=== PATIENT | male | born 1950 | race Caucasian/White ===

== ENCOUNTER 2022-12-18 17:21 | Emergency (ER) | payer OTHER ==
[~2022-12-18] VITALS: Ht 172.7 cm; Wt 79.8 kg
--- NOTE | 2022-12-18 17:48 | NUR ---
[id number] from a hotel, c/o sob 02 sat 99% on room air "pain when I breath". PLACED IN BED, AAOX4, BREATHING EVEN AND UNLABORED SATURATING AT 98%RA
--- NOTE | 2022-12-18 17:49 | NUR ---
PHLEB AT BEDSIDE FOR BLOOD DRAW
--- NOTE | 2022-12-18 18:05 | NUR ---
NAVA #[id number], BLOOD DRAWN AND SENT TO LAB
--- NOTE | 2022-12-18 18:11 | NUR ---
COVID SWAB COLLECTED AND SENT TO LAB
[2022-12-18 18:28] LABS: BASOPHILS # (AUTO) 0.1 K/uL (0.0-0.2); BASOPHILS % (AUTO) 1.6 % (0.0-2.0); EOSINOPHILS % (AUTO) 1.3 % (0.0-6.0); HEMATOCRIT 44 % (39-51); HEMOGLOBIN 14.7 g/dL (13.5-17.5); LYMPHOCYTES # (AUTO) 1.3 K/uL (0.8-4.8); LYMPHOCYTES % (AUTO) 25.6 % (20.0-44.0); MEAN CORPUSCULAR HGB CONC 33 g/dl (31.0-36.0); MEAN CORPUSCULAR VOLUME 98 fL (80-96); MONOCYTES # (AUTO) 0.8 K/uL (0.1-1.30); MONOCYTES % (AUTO) 14.9 % (2.0-12.0); NEUTROPHILS # (AUTO) 2.9 K/uL (1.8-8.9); NEUTROPHILS % (AUTO) 56.6 % (43.0-81.0); PLATELET COUNT (AUTO) 308 K/uL (150-450); RED BLOOD CELL COUNT(AUTO) 4.51 MIL/uL (4.5-6.0); WHITE BLOOD COUNT (AUTO) 5.1 K/uL (4.3-11.0)
[2022-12-18 19:18] LABS: CALCIUM, SERUM 9.7 mg/dL (8.5-10.1); CARBON DIOXIDE 23 mmol/L (21-32); CHLORIDE 101 mmol/L (98-107); CREATININE 1.5 mg/dL (0.6-1.3); GLUCOSE 89 mg/dL (74-106); POTASSIUM 3.9 mmol/L (3.5-5.1); SODIUM SERUM 137 mmol/L (136-145); UREA NITROGEN, BLOOD 19 mg/dL (7-18)
[2022-12-18] MEDS ORDERED: BENZ-13 PO ×2 (20:08→20:28)
[2022-12-18] MEDS ORDERED: DOXY100C2 PO ×2 (20:08→20:28)
[2022-12-18] MEDS ORDERED: IBUP-1955 PO (20:34)
--- NOTE | 2022-12-18 20:55 | NUR ---
IV removed. Catheter intact and site benign. Pressure and 4x4 applied to site. No bleeding noted.Patient discharged to home in stable condition. Written and verbal after care instructions given. Patient verbalizes understanding of instruction.
[2022-12-18 21:02] VITALS: BP 135/98
== END 2022-12-18 20:55 | disposition home or self-care (01) ==
LOC: ER 17:23
DX: J18.9 Pneumonia, unspecified organism (principal); R07.89 Other chest pain; I10 Essential (primary) hypertension; Z20.822 Contact with and (suspected) exposure to COVID-19
CPT/HCPCS: 99285; 71045; 87426; 93005; 85025; 80048; 36415; 84484 ×3; 83880; C9803

== ENCOUNTER 2024-08-10 15:08 | Emergency (ER) | payer OTHER ==
[~2024-08-10] VITALS: Ht 172.7 cm; Wt 78.0 kg
[~2024-08-10 15:08] MED LIST: BENZ-13 PO; DOXY100C2 PO; IBUP-1955 PO
[2024-08-10] MEDS: MORPHINE SULFATE INJ 2 MG/ML DISP.SYRIN IV ONE (16:00)
[2024-08-10] MEDS: ONDANSETRON HCL/PF 4 MG/2 ML VIAL IVP ONE (16:00)
[2024-08-10] MEDS ORDERED: ONDANSETRON HCL/PF 4 MG/2 ML VIAL ONE (16:01)
[2024-08-10] MEDS ORDERED: MORPHINE SULFATE INJ 2 MG/ML DISP.SYRIN ONE (16:02)
[2024-08-10 16:31] LABS: EOSINOPHILS # (AUTO) 0.1 K/uL (0.0-0.7); EOSINOPHILS % (AUTO) 2.8 % (0.0-6.0); HEMATOCRIT 36 % (39-51); HEMOGLOBIN 12.2 g/dL (13.5-17.5); LYMPHOCYTES # (AUTO) 0.7 K/uL (0.8-4.8); LYMPHOCYTES % (AUTO) 17.9 % (20.0-44.0); MEAN CORPUSCULAR HEMOGLOBIN 34 PG (26.0-33.0); MEAN CORPUSCULAR HGB CONC 34 g/dl (31.0-36.0); MEAN CORPUSCULAR VOLUME 99 fL (80-96); MONOCYTES # (AUTO) 0.4 K/uL (0.1-1.30); MONOCYTES % (AUTO) 10.4 % (2.0-12.0); NEUTROPHILS # (AUTO) 2.7 K/uL (1.8-8.9); NEUTROPHILS % (AUTO) 67.9 % (43.0-81.0); PLATELET COUNT (AUTO) 209 K/uL (150-450); RED BLOOD CELL COUNT(AUTO) 3.62 MIL/uL (4.5-6.0); RED CELL DISTRIBUTION WIDTH 13.7 % (11.5-15.0)
[2024-08-10 16:52] LABS: CALCIUM, SERUM 8.6 mg/dL (8.5-10.1); CARBON DIOXIDE 27 mmol/L (21-32); CHLORIDE 105 mmol/L (98-107); CREATININE 1.2 mg/dL (0.6-1.3); GLUCOSE 78 mg/dL (74-106); SODIUM SERUM 137 mmol/L (136-145); UREA NITROGEN, BLOOD 13 mg/dL (7-18)
[2024-08-10 16:56] LABS: ALANINE AMINOTRANSFERASE 19 U/L (12-78); ALBUMIN 3.2 g/dL (3.4-5.0); ALKALINE PHOSPHATASE 58 U/L (46-116); ASPARTATE AMINOTRANSFERASE 24 U/L (15-37); BILIRUBIN,DIRECT 0.2 mg/dL (0.0-0.2); BILIRUBIN,TOTAL 0.7 mg/dL (0.2-1.0); LIPASE 39 U/L (16-77); TOTAL PROTEIN, SERUM 5.7 g/dL (6.4-8.2)
[2024-08-10] MEDS ORDERED: IV NS 0.9% 250 ML IV ONE (17:00)
[2024-08-10] MEDS ORDERED: IOHEXOL-300 100 ML VIAL IV ONE (17:00)
[2024-08-10] MEDS ORDERED: DICY10CA37 PO (18:09)
[2024-08-10] MEDS ORDERED: ONDA4TAB11 PO (18:09)
[2024-08-10] MEDS ORDERED: AMOX-430 PO (18:09)
[2024-08-10 18:21] LABS: APPEARANCE,URINE Clear (CLEAR); BILIRUBIN,URINE Negative (NEGATIVE); BLOOD, URINE Negative Ery/uL (NEGATIVE); COLOR,URINE YELLOW (YELLOW); KETONES,URINE 40 mg/dL (NEGATIVE); LEUKOCYTE ESTERASE ,URINE Negative (NEGATIVE); NITRITE, URINE Negative (NEGATIVE); PROTEIN,URINE Negative (NEGATIVE); UGLUCOSE Negative (NEGATIVE); UROBILINOGEN,URINE 0.2 EU/dL (0.2)
[2024-08-10 18:24] LABS: ADD URINE CULTURE NO
[2024-08-10] MEDS: AMOX/CLAVULANATE 875 MG TABLET PO ONE (18:30)
[2024-08-10] MEDS ORDERED: AMOX/CLAVULANATE 875 MG TABLET ONE (18:34)
[2024-08-10 21:29] VITALS: BP 128/68; TEMP 98.5; O2SAT 98
== END 2024-08-10 21:30 ==
LOC: ER 15:11
DX: K57.32 Diverticulitis of large intestine without perforation or abscess without bleeding (principal); I10 Essential (primary) hypertension; E86.0 Dehydration; W06.XXXA Fall from bed, initial encounter; Y93.89 Activity, other specified; Y92.89 Other specified places as the place of occurrence of the external cause; Y99.8 Other external cause status
CPT/HCPCS: 36415; 71045-TC; 80048-TC; 80076-TC; 81001; 83690-TC; 84484-TC; 85025-TC; J2270; J2405; J7050; Q9967

== ENCOUNTER 2024-09-15 12:38 | Emergency (ER) | payer OTHER ==
[~2024-09-15] VITALS: Ht 175.3 cm; Wt 79.4 kg
[~2024-09-15 12:38] MED LIST changes: +AMOX-430 PO; +DICY10CA37 PO; +ONDA4TAB11 PO
[2024-09-15 12:40] VITALS: TEMP 98.3
[2024-09-15] MEDS: ACETAMINOPHEN 325 MG TABLET PO ONE (15:00)
[2024-09-15] MEDS: IBUPROFEN 600 MG TABLET PO ONE (15:00)
[2024-09-15 17:46] VITALS: BP 148/97; O2SAT 99
== END 2024-09-15 16:25 ==
LOC: ER 12:40
DX: S09.8XXA Other specified injuries of head, initial encounter (principal); R11.0 Nausea; R42 Dizziness and giddiness; R53.83 Other fatigue; I10 Essential (primary) hypertension; W18.39XA Other fall on same level, initial encounter; Y93.89 Activity, other specified; Y92.89 Other specified places as the place of occurrence of the external cause; Y99.8 Other external cause status
CPT/HCPCS: 70450-TC